=== PATIENT | female | born 1980 | race Caucasian/White ===

== ENCOUNTER 2017-11-26 00:05 | Emergency (ER) | payer SELFPAY ==
[2017-11-26] MEDS: Ketorolac 60 MG/2 ML SDV IM ONE (00:55)
[2017-11-26] MEDS: Amoxicillin/Clavulanate K 875-125 MG Tab ONE (00:57)
[2017-11-26] MEDS: traMADol 50 MG Tab PO ONE (00:57)
--- NOTE | 2017-11-26 00:58 | EDM.PDOC ---
ED HPI GENERAL MEDICAL PROBLEM - General Chief Complaint: General Stated Complaint: tooth pain Time Seen by Provider: 11/26/17 00:35 Source of Information: Reports: Patient History Limitations: Reports: No Limitations - History of Present Illness INITIAL COMMENTS - FREE TEXT/NARRATIVE: Patient presents with tooth pain that started yesterday. Today it hurt worse all day. She moved here from [place] two weeks ago and has not seen any medical or dental providers here. She has had occasional tooth aches and infections in the past but most recently a year ago. She says she has never had swelling of the cheek this bad before. At home she has been taking Ibuprofen 400 mg every 8 hours alternating with Tylenol 650 mg. When she has had tooth infections treated in the past they used amoxicillin and [place] but she says she gets really sick from [place] and doesn't want that. Right Upper Oral/Mouth Pain Score (Numeric/FACES): 9 - Related Data Allergies Allergy/AdvReac Type Severity Reaction Status Date / Time No Known Drug Allergies Allergy Other Verified 11/26/17 00:19 Home Meds: Home Meds . [No Known Home Meds] 11/26/17 [History] ED ROS GENERAL - Review of Systems Review Of Systems: See Below Constitutional: Reports: Chills (slight earlier today). Denies: Fever, Malaise , Weakness, Diaphoresis HEENT: Reports: Dental Pain. Denies: Ear Discharge, Throat Pain, Vision Change Respiratory: Reports: No Symptoms. Denies: Shortness of Breath, Cough Cardiovascular: Reports: No Symptoms. Denies: Chest Pain, Lightheadedness, Syncope Endocrine: Reports: No Symptoms GI/Abdominal: Reports: No Symptoms. Denies: Abdominal Pain, Vomiting : Reports: No Symptoms. Denies: Dysuria, Flank Pain Musculoskeletal: Reports: No Symptoms Skin: Denies: Cyanosis, Jaundice, Mottled, Pallor, Diaphoresis Neurological: Denies: Confusion, Dizziness, Headache, Seizure, Syncope, Difficulty Walking, Weakness Psychiatric: Reports: No Symptoms. Denies: Agitation, Anxiety, Confusion ED EXAM, GENERAL - Physical Exam Exam: See Below Exam Limited By: No Limitations General Appearance: Alert, WD/WN, No Apparent Distress Eye Exam: Bilateral Eye: EOMI, Normal Inspection, PERRL Ears: Normal External Exam, Hearing Grossly Normal Nose: Normal Inspection, No Blood Throat/Mouth: Normal Lips, Normal Oropharynx, Normal Voice, No Airway Compromise , Other (The right upper molar second from rear is mostly missing. This area is tender to touch. The adjacent right cheek is significantly swollen and tender to palpation but no external erythema or appearance of overt cellulitis or abscess. ) Head: Atraumatic, Facial Swelling, Facial Tenderness. No: Sinus Tenderness Neck: Normal Inspection, Supple, Non-Tender, Full Range of Motion. No: Lymphadenopathy (L), Lymphadenopathy (R) Respiratory/Chest: No Respiratory Distress, Lungs Clear, Normal Breath Sounds, No Accessory Muscle Use Cardiovascular: Regular Rate, Rhythm, No Murmur, No Rub Back Exam: Normal Inspection, Full Range of Motion Extremities: Normal Inspection, Normal Range of Motion Neurological: Alert, Oriented, Normal Cognition, No Motor/Sensory Deficits Psychiatric: Normal Affect, Normal Mood Skin Exam: Warm, Dry, Intact, Normal Color, No Rash Course - Vital Signs Last Recorded V/S: Last Vital Signs Temp 98.0 F 11/26/17 00:10 Pulse 88 11/26/17 00:10 Resp 18 11/26/17 00:10 BP 123/61 11/26/17 00:10 Pulse Ox 98 11/26/17 00:10 - Orders/Labs/Meds Meds: Medications Discontinued Medications Generic Name Dose Route Start Last Admin Trade Name Mely PRN Reason Stop Dose Admin Amoxicillin 875 mg 11/26/17 00:47 Amoxil PO 11/26/17 00:48 ONETIME ONE Ketorolac Tromethamine 60 mg 11/26/17 00:47 Toradol IM 11/26/17 00:48 ONETIME ONE Ketorolac Tromethamine Confirm 11/26/17 00:51 Toradol Administered 11/26/17 00:52 Dose 60 mg .ROUTE .STK-MED ONE Tramadol HCl 100 mg 11/26/17 00:47 Ultram PO 11/26/17 00:48 ONETIME ONE - Re-Assessments/Exams Free Text/Narrative Re-Assessment/Exam: 11/26/17 01:06 Discussed findings and treatment plan with patient. We gave Toradol and Tramadol along with Amoxicillin in ER. Patient discharged to home in stable condition. Departure - Departure Time of Disposition: 01:03 Disposition: Home, Self-Care 01 Condition: Good Clinical Impression: Tooth pain, Dental infection - Discharge Information Instructions: Dental Abscess, [id number] Additional Instructions: 1. Drink 8 cups of water daily. 2. Take the medications as directed. 3. You can also take Ibuprofen as needed but wait for 12 hours. Tylenol you can resume as needed. 4. Try to see a dentist or medical provider in clinic [facility] next week.
[2017-11-26] MEDS ORDERED: Amoxicillin/Clavulanate K 875-125 MG Tab PO ONE (01:20)
[2017-11-26] MEDS: Amoxicillin 875 MG Tab PO ONE (02:17)
[2017-11-26] MEDS: Ketorolac 60 MG/2 ML SDV ONE (02:19)
[2017-11-26] MEDS: traMADol 50 MG Tab ONE (02:19)
== END 2017-11-26 01:15 | disposition home or self-care (01) ==
LOC: KA.ED 00:05
DX: K04.7 Periapical abscess without sinus (principal)
CPT/HCPCS: 96372; 99282; A9270-GY; J1885

== ENCOUNTER 2017-11-26 19:14 | Emergency (ER) | payer SELFPAY ==
[2017-11-26] MEDS ORDERED: Ondansetron 4 MG Tab.DIS PO ONE (19:40)
[2017-11-26] MEDS: Ondansetron 4 MG Tab.DIS ONE (19:45)
[2017-11-26 19:59] LABS: ANION GAP 15.8 mmol/L (5-15); CHLORIDE,CL 104 mmol/L (98-115); SODIUM,NA 142 mmol/L (136-145)
[2017-11-26] MEDS: cefTRIAXone 2 GM Vial IVPUSH ONE (20:15)
[2017-11-26] MEDS: traMADol 50 MG Tab PO ONE ×2 (20:40→21:30)
[2017-11-26] MEDS: Ketorolac 30 MG/ML SDV IVPUSH ONE (20:41)
--- NOTE | 2017-11-26 20:43 | EDM.PDOC ---
ED HPI GENERAL MEDICAL PROBLEM - General Stated Complaint: SWOLLEN FACE..TOOTH?? Time Seen by Provider: 11/26/17 19:16 Source of Information: Reports: Patient History Limitations: Reports: No Limitations - History of Present Illness INITIAL COMMENTS - FREE TEXT/NARRATIVE: Patient returns to ER with worsening pain and swelling of right cheek. She was here in ER about 19 hours ago with dental pain and cheek pain and swelling. We gave Tramadol and Toradol as well as Augmentin 875 in ER and discharged with Rx for outpatient antibiotics and Tramadol. 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 She says the pain was improved for a few hours after she left but is now worse than before and the swelling is getting worse too. She vomited twice this evening but otherwise denies any additional problems. Right Face Pain Score (Numeric/FACES): 10 - Related Data Allergies Allergy/AdvReac Type Severity Reaction Status Date / Time No Known Drug Allergies Allergy Other Verified 11/26/17 00:19 Home Meds: Home Meds . [No Known Home Meds] 11/26/17 [History] Past Medical History HEENT History: Reports: Other (See Below) Other HEENT History: Pt reports wisdom teeth surgically removed and has had root canal in past. 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 Denies: Sinus Problem, Throat Swelling, Vision Change Respiratory: Reports: No Symptoms. Denies: Shortness of Breath Cardiovascular: Reports: No Symptoms. Denies: Chest Pain, Lightheadedness, Syncope Endocrine: Reports: No Symptoms GI/Abdominal: Reports: Nausea, Vomiting. Denies: Abdominal Pain : Reports: No Symptoms Musculoskeletal: Reports: No Symptoms Skin: Reports: Erythema (right cheek). Denies: Cyanosis, Jaundice, Mottled, Pallor, Diaphoresis Neurological: Reports: No Symptoms. Denies: Confusion, Dizziness, Seizure, Syncope, Difficulty Walking Psychiatric: Denies: Agitation, Anxiety, Confusion ED EXAM, ENT - Physical Exam Exam: See Below Exam Limited By: No Limitations General Appearance: Alert, WD/WN, No Apparent Distress Eye Exam: Bilateral Eye: EOMI, Normal Inspection, PERRL Ears: Normal External Exam, Hearing Grossly Normal Nose: Normal Inspection, No Blood Mouth/Throat: Normal Lips, Normal Oropharynx. No: Throat Swelling, Tonsillar Swelling Head: Atraumatic, Facial Swelling (right cheek from lower eyelid to mandible), Facial Tenderness (right cheek tender to palpate and mild erythema consistent with cellulitis; not fluctuant) Neck: Normal Inspection, Supple, Non-Tender, Full Range of Motion Respiratory/Chest: No Respiratory Distress, Lungs Clear, Normal Breath Sounds, No Accessory Muscle Use Cardiovascular: Regular Rate, Rhythm, No Murmur, No Rub Extremities: Normal Inspection, Normal Range of Motion Neurological: Alert, Oriented, Normal Cognition, No Motor/Sensory Deficits Psychiatric: Normal Affect, Normal Mood Skin: Warm, Dry, Intact, No Rash Course - Orders/Labs/Meds Orders: Active Orders 24 hr Category Date Time Status Amoxicillin/Clavulanate K [Augmentin 875 MG/125 MG] Med 11/27/17 09:00 Ordered 1 tab PO [id number] Medication Orders Amoxicillin/Clavulanate Potassium (Augmentin 875 Mg/125 Mg) 1 tab PO [id number] TYLOR Stop: 11/28/17 21:01 Labs: Laboratory Tests 11/26/17 11/26/17 Range/Units 19:25 19:25 WBC 8.1 (5.0-10.0) 10^3/uL RBC 3.87 (3.80-5.50) 10^6/uL Hgb 12.4 (12.0-16.0) g/dL Hct 35.7 L (37.0-47.0) % MCV 92.3 H (82.0-92.0) fL MCH 32.2 H (27.0-31.0) pg MCHC 34.8 (32.0-36.0) g/dL RDW 12.9 (11.5-14.5) % Plt Count 183 (150-300) 10^3/uL MPV 7.4 (7.4-10.4) fL Neut % (Auto) 76.4 H (50.0-70.0) % Lymph % (Auto) 16.1 L (20.0-40.0) % Benson % (Auto) 6.5 (2.0-8.0) % Eos % (Auto) 0.3 L (1.0-3.0) % Baso % (Auto) 0.7 (0.0-1.0) % Neut # (Auto) 6.2 (2.5-7.0) 10^3/uL Lymph # (Auto) 1.3 (1.0-4.0) 10^3/uL Benson # (Auto) 0.5 (0.1-0.8) 10^3/uL Eos # (Auto) 0.0 L (0.1-0.3) 10^3/uL Baso # (Auto) 0.1 (0.0-0.1) 10^3/uL Sodium 142 (136-145) mmol/L Potassium 3.6 (3.3-5.3) mmol/L Chloride 104 (98-115) mmol/L Carbon Dioxide 25.8 (21.0-32.0) mmol/L Anion Gap 15.8 H (5-15) mmol/L BUN 14 (6-25) mg/dL Creatinine 0.67 (0.51-1.17) mg/dL Est Cr Clr Drug Dosing 121.91 mL/min Estimated GFR (MDRD) > 60 mL/min Glucose 97 mg/dL Calcium 9.0 (8.7-10.3) mg/dL Total Bilirubin 0.4 (0.2-1.0) mg/dL AST 16 (15-37) U/L ALT 27 (12-78) U/L Alkaline Phosphatase 51 (46-116) IU/L C-Reactive Protein 4.1 H (0.0-0.9) mg/dL Total Protein 7.4 (6.4-8.2) g/dL Albumin 3.95 (3.00-4.80) g/dL Meds: Medications Generic Name Dose Route Start Last Admin Trade Name Freq PRN Reason Stop Dose Admin Amoxicillin/Clavulanate Potassium 1 tab 11/27/17 09:00 Augmentin 875 Mg/125 Mg PO 11/28/17 21:01 [id number] TYLOR Discontinued Medications Generic Name Dose Route Start Last Admin Trade Name Freq PRN Reason Stop Dose Admin Ceftriaxone Sodium 2 gm 11/26/17 19:49 Rocephin IVPUSH 11/26/17 19:50 ONETIME ONE Ceftriaxone Sodium Confirm 11/26/17 19:59 Rocephin Administered 11/26/17 20:00 Dose 2 gm .ROUTE .STK-MED ONE Ketorolac Tromethamine 30 mg 11/26/17 20:36 Toradol IVPUSH 11/26/17 20:37 ONETIME ONE Ondansetron HCl Confirm 11/26/17 19:40 11/26/17 19:45 Zofran Odt Administered 11/26/17 19:41 4 mg Dose Administration 4 mg .ROUTE .STK-MED ONE Tramadol HCl 100 mg 11/26/17 20:36 Ultram PO 11/26/17 20:37 ONETIME ONE Tramadol HCl 200 mg 11/26/17 21:09 Ultram PO 11/26/17 21:10 ONETIME ONE Departure - Departure Time of Disposition: 21:15 Disposition: Home, Self-Care 01 Condition: Good Clinical Impression: Cellulitis of external cheek, right, Pain, dental - Discharge Information Referrals: PCP,Unknown [Primary Care Provider] - Additional Instructions: 1. Take the Augmentin and Tramadol as directed. 2. Follow up with a dentist or primary care provider within the next 2-3 days if possible. 3. If worsening recheck [facility] with clinic or return to ER if needed. - My Orders Last 24 Hours: My Active Orders 11/27/17 09:00 Amoxicillin/Clavulanate K [Augmentin 875 MG/125 MG] 1 tab PO [id number] - Assessment/Plan Last 24 Hours: My Active Orders 11/27/17 09:00 Amoxicillin/Clavulanate K [Augmentin 875 MG/125 MG] 1 tab PO [id number]
[2017-11-26] MEDS ORDERED: Amoxicillin/Clavulanate K 875-125 MG Tab PO ONE (21:12)
[2017-11-27] MEDS: cefTRIAXone 1 GM Vial ONE (02:35)
[2017-11-27] MEDS: Amoxicillin/Clavulanate K 875-125 MG Tab PO SCH (02:36)
== END 2017-11-26 21:30 | disposition home or self-care (01) ==
LOC: KA.ED 19:14
DX: L03.211 Cellulitis of face (principal); K08.89 Other specified disorders of teeth and supporting structures
CPT/HCPCS: 36415; 80053; 85025; 86140; 96374; 96375; 99282; A9270-GY; J0696; J1885

== ENCOUNTER 2017-12-27 20:34 | Emergency (ER) | payer SELFPAY ==
--- NOTE | 2017-12-27 21:01 | EDM.PDOC ---
ED HPI GENERAL MEDICAL PROBLEM - General Chief Complaint: Fever Stated Complaint: flu like symptoms Time Seen by Provider: 12/27/17 20:42 Source of Information: Reports: Patient History Limitations: Reports: No Limitations - History of Present Illness INITIAL COMMENTS - FREE TEXT/NARRATIVE: Patient is a 37-year-old female who presents to the emergency department with a complaint of fever, cough, and body aches. Patient states symptoms began yesterday. She had a fever of 101, and symptoms have persisted today and fever remained although she has been taking Tylenol. Patient denies chest pain, shortness of breath, nausea, vomiting, diarrhea, abdominal pain, out of country travel. Onset: Gradual Duration: Day(s):, Getting Worse Quality: Reports: Ache Severity: Mild Improves with: Reports: None Worsens with: Reports: None Associated Symptoms: Reports: Cough, Fever/Chills. Denies: cough w sputum Treatments EDI PROGRAMMER: Reports: Acetaminophen Generalized Pain Score (Numeric/FACES): 5 - Related Data Allergies Allergy/AdvReac Type Severity Reaction Status Date / Time No Known Drug Allergies Allergy Other Verified 12/27/17 20:39 Home Meds: Home Meds . [No Known Home Meds] 11/26/17 [History] Past Medical History HEENT History: Reports: Other (See Below) Other HEENT History: Pt reports wisdom teeth surgically removed and has had root canal in past. 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 Constitutional: Reports: Fever, Chills HEENT: Reports: No Symptoms Respiratory: Reports: Cough Cardiovascular: Reports: No Symptoms Endocrine: Reports: No Symptoms GI/Abdominal: Reports: No Symptoms : Reports: No Symptoms Musculoskeletal: Reports: Muscle Pain Skin: Reports: No Symptoms Neurological: Reports: No Symptoms Psychiatric: Reports: No Symptoms Hematologic/Lymphatic: Reports: No Symptoms Immunologic: Reports: No Symptoms ED EXAM, GENERAL - Physical Exam Exam: See Below Exam Limited By: No Limitations General Appearance: Alert, WD/WN, No Apparent Distress Eye Exam: Bilateral Eye: Normal Inspection Ears: Normal External Exam, Normal Canal, Normal TMs Nose: Nasal Swelling, Clear Rhinorrhea, Other (Mucosal erythema) Head: Atraumatic, Normocephalic Neck: Normal Inspection, Supple. No: Lymphadenopathy (L), Lymphadenopathy (R) Respiratory/Chest: No Respiratory Distress, Crackles Cardiovascular: Tachycardia GI/Abdominal: Normal Bowel Sounds, Soft, Non-Tender Back Exam: Normal Inspection Extremities: Normal Inspection, No Pedal Edema Neurological: Alert, Oriented, Normal Cognition Psychiatric: Normal Affect, Normal Mood Skin Exam: Warm, Dry, Intact, Normal Color, No Rash Lymphatic: No Adenopathy Course - Vital Signs Last Recorded V/S: Last Vital Signs Temp 100.1 F 12/27/17 20:42 Pulse 120 H 12/27/17 20:42 Resp 20 12/27/17 20:42 BP 136/54 L 12/27/17 20:42 Pulse Ox 96 12/27/17 20:42 - Orders/Labs/Meds Orders: Active Orders 24 hr Category Date Time Status Chest 2V [CR] Stat Exams 12/27/17 20:53 Ordered INFLUENZA A+B AG SCREEN [RM] Stat Lab 12/27/17 20:53 Ordered - Radiology Interpretation Free Text/Narrative:: Chest x-ray shows no acute cardiopulmonary process - Re-Assessments/Exams Free Text/Narrative Re-Assessment/Exam: 12/27/17 21:55 Patient afebrile, nontoxic appearing, vital signs stable. Influenza negative. Patient given 500 mg Zithromax, and 600 mg Motrin ER. Prescription for 2 more days of 500 mg Zithromax Departure - Departure Time of Disposition: 21:57 Disposition: Home, Self-Care 01 Condition: Good Clinical Impression: Bronchitis - Discharge Information Instructions: Upper Respiratory Infection, Adult, [id number], Fever, Adult, [id number] Additional Instructions: Follow-up he primary care doctor in 2-3 days. Return to the emergency department sooner if symptoms continue or worsen - My Orders Last 24 Hours: My Active Orders 12/27/17 20:53 Chest 2V [CR] Stat INFLUENZA A+B AG SCREEN [RM] Stat - Assessment/Plan Last 24 Hours: My Active Orders 12/27/17 20:53 Chest 2V [CR] Stat INFLUENZA A+B AG SCREEN [RM] Stat Assessment:: Bronchitis Plan: Follow-up with PCP
[2017-12-27] MEDS ORDERED: Azithromycin 250 MG Tab PO ONE (21:53)
[2017-12-27] MEDS ORDERED: Ibuprofen 600 MG Tab PO ONE (21:53)
== END 2017-12-27 22:00 | disposition home or self-care (01) ==
LOC: KA.ED 20:34
DX: J40 Bronchitis, not specified as acute or chronic (principal); F17.210 Nicotine dependence, cigarettes, uncomplicated
CPT/HCPCS: 71046; 87804; 99283; A9270-GY

== ENCOUNTER 2018-04-29 15:37 | Emergency (ER) | payer MEDICAID ==
[2018-04-29] MEDS ORDERED: Clindamycin HCl 150 MG Cap PO ONE ×2 (17:37→17:39)
[2018-04-29] MEDS ORDERED: cefTRIAXone 1 GM Vial IM ONE (17:37)
--- NOTE | 2018-04-29 17:46 | EDM.PDOC ---
ED HPI GENERAL MEDICAL PROBLEM - General Chief Complaint: General Stated Complaint: TOOTHACHE Time Seen by Provider: 04/29/18 17:37 Source of Information: Reports: Patient History Limitations: Reports: No Limitations - History of Present Illness INITIAL COMMENTS - FREE TEXT/NARRATIVE: Patient is a 37-year-old female who presents to the emergency department this afternoon with a complaint of dental pain. States it is a chronic condition. However, noticed that her face was swelling this morning. He came concerned, so presents emergency department. Patient said similar symptoms happen last year. She was given antibiotics and it did resolve. She has not seen a dentist nor has she had any dental procedures recently. States she can't afford it. Denies difficulty swallowing or fever. Onset: Gradual Duration: Day(s): Location: Reports: Face Quality: Reports: Ache Severity: Mild Improves with: Reports: None Worsens with: Reports: None Context: Denies: Trauma Associated Symptoms: Reports: No Other Symptoms. Denies: Cough, Fever/Chills, Nausea/Vomiting - Related Data Allergies Allergy/AdvReac Type Severity Reaction Status Date / Time No Known Drug Allergies Allergy Other Verified 04/29/18 16:37 Home Meds: Home Meds Azithromycin [Zithromax] 500 mg PO DAILY #2 tab 12/28/17 [Rx] Clindamycin HCl 300 mg PO QID #28 capsule 04/29/18 [Rx] Past Medical History HEENT History: Reports: Other (See Below) Other HEENT History: Pt reports wisdom teeth surgically removed and has had root canal in past. 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 Constitutional: Reports: No Symptoms HEENT: Reports: Other (Right-sided dental pain) Respiratory: Reports: No Symptoms Cardiovascular: Reports: No Symptoms Endocrine: Reports: No Symptoms GI/Abdominal: Reports: No Symptoms : Reports: No Symptoms Musculoskeletal: Reports: No Symptoms Skin: Reports: No Symptoms Neurological: Reports: No Symptoms Psychiatric: Reports: No Symptoms Hematologic/Lymphatic: Reports: No Symptoms Immunologic: Reports: No Symptoms ED EXAM, GENERAL - Physical Exam Exam: See Below Exam Limited By: No Limitations General Appearance: Alert, WD/WN, No Apparent Distress Ear Exam: Bilateral Ear: Auricle Normal, Canal Normal, TM normal Nose: Normal Inspection, Normal Mucosa, No Blood Throat/Mouth: Normal Oropharynx, Other (Extensive dental decay.) Head: Atraumatic, Facial Swelling (Right maxillary region), Other (. No erythema or ecchymosis noted) Neck: Normal Inspection, Supple. No: Lymphadenopathy (L), Lymphadenopathy (R) Respiratory/Chest: No Respiratory Distress, Lungs Clear, Normal Breath Sounds Cardiovascular: Regular Rate, Rhythm, No Murmur GI/Abdominal: Normal Bowel Sounds, Soft, Non-Tender Neurological: Alert, Oriented, Normal Cognition Psychiatric: Normal Affect, Normal Mood Skin Exam: Warm, Dry, Intact, Normal Color, No Rash Lymphatic: No Adenopathy Course - Vital Signs Last Recorded V/S: Last Vital Signs Temp 98.8 F 04/29/18 16:57 Pulse 91 04/29/18 16:57 Resp 18 04/29/18 16:57 BP 102/48 L 04/29/18 16:57 Pulse Ox 96 04/29/18 16:57 - Orders/Labs/Meds Meds: Medications Discontinued Medications Generic Name Dose Route Start Last Admin Trade Name Sarkisq PRN Reason Stop Dose Admin Ceftriaxone Sodium 1 gm 04/29/18 17:37 Rocephin IM 04/29/18 17:38 ONETIME ONE Clindamycin HCl 300 mg 04/29/18 17:37 Cleocin PO 04/29/18 17:38 ONETIME ONE Clindamycin HCl 1,200 mg 04/29/18 17:39 Cleocin PO 04/29/18 17:40 ONETIME ONE - Re-Assessments/Exams Free Text/Narrative Re-Assessment/Exam: 04/29/18 17:46 Patient afebrile, vital signs stable. Patient given 1 g IM Rocephin, and 300 mg of clindamycin in the ER. Patient given prescription for clindamycin. Patient will return to the ER in 24-48 hours for recheck. Departure - Departure Time of Disposition: 17:48 Disposition: Home, Self-Care 01 Condition: Good Clinical Impression: Toothache, Infected dental caries - Discharge Information Prescriptions: Clindamycin HCl 300 mg PO QID #28 capsule Instructions: Preventive Dental Care, Adult, Cellulitis, Adult, [id number] Referrals: PCP,None [Primary Care Provider] - Additional Instructions: Return to the ER in 24-48 hours for recheck. Take medication as prescribed. - Assessment/Plan Assessment:: Toothache, facial cellulitis Plan: Recheck in 24-48 hours
== END 2018-04-29 18:30 | disposition home or self-care (01) ==
LOC: KA.ED 15:37
DX: K04.7 Periapical abscess without sinus (principal); F17.210 Nicotine dependence, cigarettes, uncomplicated; Z79.2 Long term (current) use of antibiotics; Z90.710 Acquired absence of both cervix and uterus
CPT/HCPCS: 96372; 99283; A9270-GY; J0696

== ENCOUNTER 2018-10-04 21:21 | Emergency (ER) | payer MEDICAID ==
[2018-10-04 21:34] VITALS: BP 131/62
[2018-10-04] MEDS: Lidocaine 1% 20 ML MDV ONE ×2 (21:53→21:56)
--- NOTE | 2018-10-04 21:53 | EDM.PDOC ---
ED HPI GENERAL MEDICAL PROBLEM - General Chief Complaint: Lower Extremity Injury/Pain Stated Complaint: RIGHT LEG CELLULITIS Time Seen by Provider: 10/04/18 21:48 Source of Information: Reports: Patient History Limitations: Reports: No Limitations - History of Present Illness INITIAL COMMENTS - FREE TEXT/NARRATIVE: Patient is a 38-year-old female who presents to the emergency department this evening with a complaint of right lower extremity redness. Redness began yesterday and worsened today. Patient states that she's had cellulitis in this area of lower extremity 4 times previously. Resolved with antibiotics. Unsure of insult, has not shaved legs for one week. Denies calf swelling, tenderness, pedal edema, shortness of breath, or chest pain. Onset: Gradual Onset Date: 10/03/18 Duration: Day(s): Location: Reports: Lower Extremity, Right Quality: Reports: Burning Severity: Mild Improves with: Reports: None Worsens with: Reports: None Associated Symptoms: Reports: Fever/Chills. Denies: Chest Pain, Diaphoresis, Nausea/Vomiting, Shortness of Breath Treatments ANIMAL CARE ATTENDANT: Reports: Other Medication(s) Other Treatments ANIMAL CARE ATTENDANT: ibuprofen Right Lower Leg Pain Score (Numeric/FACES): 3 - Related Data Allergies Allergy/AdvReac Type Severity Reaction Status Date / Time No Known Drug Allergies Allergy Other Verified 04/29/18 16:37 Home Meds: Home Meds Cephalexin [Keflex] 500 mg PO TID #30 capsule 10/04/18 [Rx] Past Medical History HEENT History: Reports: Other (See Below) Other HEENT History: Pt reports wisdom teeth surgically removed and has had root canal in past. 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 Constitutional: Reports: Fever Eyes: Reports: No Symptoms Ears: Reports: No Symptoms Nose: Reports: No Symptoms Mouth/Throat: Reports: No Symptoms Respiratory: Reports: No Symptoms Cardiovascular: Reports: No Symptoms GI/Abdominal: Reports: No Symptoms Genitourinary: Reports: No Symptoms Musculoskeletal: Reports: No Symptoms Skin: Reports: Erythema (Right tib-fib) Neurological: Reports: No Symptoms Psychiatric: Reports: No Symptoms ED EXAM, GENERAL - Physical Exam Exam: See Below Exam Limited By: No Limitations General Appearance: Alert, WD/WN, No Apparent Distress Throat/Mouth: Normal Inspection, Normal Oropharynx, No Airway Compromise Respiratory/Chest: No Respiratory Distress, Lungs Clear Extremities: Normal Inspection Neurological: Alert, Oriented, Normal Cognition Psychiatric: Normal Affect, Normal Mood Skin Exam: Warm, Dry, Intact, No Rash, Erythema (Right lower extremity anterior tib-fib with some extension into mid and lateral aspect. Not circumferential. No palpable cord, calf tenderness or firmness, or pedal edema noted.) Lymphatic: No Adenopathy Course - Vital Signs Last Recorded V/S: Last Vital Signs Temp 100.2 F 10/04/18 21:28 Pulse 105 H 10/04/18 21:28 Resp 16 10/04/18 21:28 BP 131/62 10/04/18 21:28 Pulse Ox 93 L 10/04/18 21:28 - Orders/Labs/Meds Orders: Active Orders 24 hr Category Date Time Status cefTRIAXone [Rocephin] Med 10/04/18 21:48 Once 1 gm IM ONETIME ONE - Re-Assessments/Exams Free Text/Narrative Re-Assessment/Exam: 10/04/18 21:53 Patient afebrile, vital signs stable, given 1 g IM Rocephin. Patient given prescription for Keflex and a 24-hour follow-up recheck. Departure - Departure Time of Disposition: 21:55 Disposition: Home, Self-Care 01 Condition: Good Clinical Impression: Cellulitis of lower extremity Qualifiers: Laterality: right Qualified Code(s): L03.115 - Cellulitis of right lower limb - Discharge Information Instructions: Cellulitis, Adult, [id number] Additional Instructions: Return to emergency department in 24 hours for recheck. Take medication as directed. - My Orders Last 24 Hours: My Active Orders 10/04/18 21:48 cefTRIAXone [Rocephin] 1 gm IM ONETIME ONE - Assessment/Plan Last 24 Hours: My Active Orders 10/04/18 21:48 cefTRIAXone [Rocephin] 1 gm IM ONETIME ONE Assessment:: Right lower extremity cellulitis Plan: Recheck in 24 hours
[2018-10-04] MEDS: Lidocaine 1% 20 ML MDV INJECT ONE (21:58)
[2018-10-04] MEDS: cefTRIAXone 1 GM Vial IM ONE (21:58)
[2018-10-05] MEDS ORDERED: cefTRIAXone 1 GM Vial IM ONE (16:11)
== END 2018-10-04 22:00 | disposition home or self-care (01) ==
LOC: KA.ED 21:21
DX: L03.115 Cellulitis of right lower limb (principal)
CPT/HCPCS: 96372; 99283; J0696; J2001

== ENCOUNTER 2020-07-19 22:47 | Emergency (ER) | payer BC, OTHER ==
--- NOTE | 2020-07-19 23:14 | EDM.PDOC ---
ED HPI GENERAL MEDICAL PROBLEM - General Chief Complaint: Chest Pain Stated Complaint: Chest pain vs. anxiety Time Seen by Provider: 07/19/20 22:50 Source of Information: Reports: Patient History Limitations: Reports: No Limitations - History of Present Illness INITIAL COMMENTS - FREE TEXT/NARRATIVE: 40-year-old female presents emergency room with complaints of chest pressure th at radiates to her left neck and chin and left shoulder. She reports that symptoms started when she was picking her son up this evening. They last about 10 to 15 seconds. They reoccur every 15 to 20 minutes. She denies any shortness of breath. She denies any palpations. She denies any diaphoresis. No nausea or vomiting no abdominal complaints. She denies any significant past medical medical history consistent with hypertension, diabetes, heart disease, cholesterol. She does have positive history of anxiety and mild depression. This has been well controlled with Lexapro and Xanax as needed for panic attacks. Patient feels the symptoms were different than previous episodes and therefore became concerned and presents to the emergency room for further work- up and evaluation. Onset: Today Onset Date: 07/19/20 Onset Time: 22:00 Duration: Recurring Location: Reports: Neck, Chest, Upper Extremity, Left (shoulder) Quality: Reports: Pressure Severity: Mild Improves with: Reports: None Worsens with: Reports: None Associated Symptoms: Reports: Chest Pain (pressure). Denies: Diaphoresis, Fever/Chills, Headaches, Nausea/Vomiting, Shortness of Breath, Weakness chest Pain Score (Numeric/FACES): 3 - Related Data Allergies Allergy/AdvReac Type Severity Reaction Status Date / Time No Known Drug Allergies Allergy Unknown Other Verified 07/19/20 23:13 Home Meds: Home Meds ALPRAZolam [Xanax] 0.25 mg PO Q6H PRN 07/19/20 [History] Cyclobenzaprine [Flexeril] 10 mg PO TID PRN 07/19/20 [History] Escitalopram [Lexapro] 10 mg PO DAILY 07/19/20 [History] Past Medical History HEENT History: Reports: Other (See Below) Other HEENT History: Pt reports wisdom teeth surgically removed and has had root canal in past. 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: Dermatologic History: Reports: Cellulitis - Infectious Disease History Infectious Disease History: Reports: Chicken Pox, Influenza - Past Surgical History Female Surgical History: Reports: Hysterectomy Social & Family History - Family History Family Medical History: No Pertinent Family History - Caffeine Use Caffeine Use: Reports: Coffee ED ROS GENERAL - Review of Systems Review Of Systems: See Below Constitutional: Reports: No Symptoms HEENT: Reports: No Symptoms Respiratory: Reports: No Symptoms Cardiovascular: Reports: Chest Pain (Pressure) Endocrine: Reports: No Symptoms GI/Abdominal: Reports: No Symptoms : Reports: No Symptoms Musculoskeletal: Reports: Neck Pain (Left side), Shoulder Pain (Left shoulder) Skin: Reports: No Symptoms Neurological: Reports: No Symptoms Psychiatric: Reports: Anxiety, Depression Hematologic/Lymphatic: Reports: No Symptoms Immunologic: Reports: No Symptoms ED EXAM, GENERAL - Physical Exam Exam: See Below General Appearance: Alert, WD/WN, No Apparent Distress Eye Exam: Bilateral Eye: EOMI Ears: Hearing Grossly Normal Nose: Normal Inspection Throat/Mouth: Normal Inspection, Normal Oropharynx, Normal Voice, No Airway Compromise Head: Atraumatic, Normocephalic Neck: Normal Inspection, Supple, Non-Tender, Full Range of Motion. No: Carotid Bruit, Lymphadenopathy (L), Lymphadenopathy (R) Respiratory/Chest: No Respiratory Distress, Lungs Clear, Normal Breath Sounds, No Accessory Muscle Use, Chest Non-Tender Cardiovascular: Normal Peripheral Pulses, Regular Rate, Rhythm, No Murmur Peripheral Pulses: 1+: Dorsalis Pedis (L), Dorsalis Pedis (R), 2+: Carotid (L), Carotid (R) GI/Abdominal: Soft, Non-Tender Back Exam: Normal Inspection, Full Range of Motion Extremities: Normal Inspection, Normal Range of Motion, No Pedal Edema Neurological: Alert, Oriented, No Motor/Sensory Deficits Psychiatric: Normal Affect, Normal Mood Skin Exam: Warm, Dry, Intact, Normal Color, No Rash Lymphatic: No Adenopathy #1 Interpretation EKG Date: 07/19/20 Time: 23:04 Rhythm: NSR Rate (Beats/Min): 77 [place]: Normal P-Wave: Enlarged QRS: Normal ST-T: Normal QT: Normal Comparison: NA - No Prior EKG EKG Interpretation Comments: Normal sinus rhythm Possible left atrial enlargement Borderline ECG Course - Vital Signs Last Recorded V/S: Last Vital Signs Temp 96.6 F L 07/19/20 22:47 Pulse 83 07/20/20 00:02 Resp 15 07/20/20 00:02 BP 122/72 07/20/20 00:02 Pulse Ox 98 07/20/20 00:02 - Orders/Labs/Meds Orders: Active Orders 24 hr Category Date Time Status EKG Documentation Completion [RC] ASDIRECTED Care 07/19/20 22:56 Active EKG 12 Lead [EK] Stat Ther 07/19/20 22:55 Ordered Labs: Laboratory Tests 07/19/20 07/19/20 07/20/20 Range/Units 23:00 23:00 00:58 WBC 6.37 (5.00-10.00) 10^3/uL RBC 4.08 (3.80-5.50) 10^6/uL Hgb 12.1 (12.0-16.0) g/dL Hct 35.9 L (37.0-47.0) % MCV 88.0 D (82.0-92.0) fL MCH 29.7 (27.0-31.0) pg MCHC 33.7 (32.0-36.0) g/dL RDW 13.1 (11.5-14.5) % Plt Count 196 (150-400) 10^3/uL MPV 9.2 (7.4-10.4) fL Immature Gran % (Auto) 0.0 (0.0-5.0) % Neut % (Auto) 49.0 L (50.0-70.0) % Lymph % (Auto) 40.7 H (20.0-40.0) % [place] % (Auto) 7.8 (2.0-8.0) % Eos % (Auto) 2.2 (1.0-3.0) % Baso % (Auto) 0.3 (0.0-1.0) % Neut # (Auto) 3.12 (2.50-7.00) 10^3/uL Lymph # (Auto) 2.59 (1.00-4.00) 10^3/uL [place] # (Auto) 0.50 (0.10-0.80) 10^3/uL Eos # (Auto) 0.14 (0.10-0.30) 10^3/uL Baso # (Auto) 0.02 (0.00-0.10) 10^3/uL Immature Gran # (Auto) 0.00 (0.00-0.50) 10^3/uL Sodium 145 (136-145) mmol/L Potassium 3.2 L (3.5-5.1) mmol/L Chloride 106 (98-107) mmol/L Carbon Dioxide 26.5 (21.0-32.0) mmol/L Anion Gap 15.7 H (5-15) mmol/L BUN 16 (7-18) mg/dL Creatinine 0.77 (0.51-1.17) mg/dL Est Cr Clr Drug Dosing 102.92 mL/min Estimated GFR (MDRD) > 60 mL/min Glucose 126 (70-140) mg/dL Calcium 8.5 L (8.7-10.3) mg/dL Total Bilirubin 0.1 L (0.2-1.0) mg/dL AST 15 (15-37) U/L ALT 22 (14-63) U/L Alkaline Phosphatase 75 (46-116) U/L Troponin I < 0.017 < 0.017 (0.000-0.056) ng/mL Total Protein 6.5 (6.4-8.2) g/dL Albumin 3.39 L (3.40-5.00) g/dL Meds: Medications Discontinued Medications Generic Name Dose Route Start Last Admin Trade Name Freq PRN Reason Stop Dose Admin Alprazolam 0.5 mg 07/19/20 23:22 07/19/20 23:26 Alprazolam 0.25 Mg Tab PO 07/19/20 23:23 0.5 mg ONETIME ONE Administration Aspirin 324 mg 07/19/20 23:17 07/19/20 23:25 Aspirin 81 Mg Tab.Chew PO 07/19/20 23:18 324 mg ONETIME ONE Administration - Re-Assessments/Exams Free Text/Narrative Re-Assessment/Exam: 07/20/20 00:49 Was given 4 chewable aspirin upon arrival Patient was given 0.5 mg of Xanax. Patient reports approximately 45 minutes after receiving the Xanax as she feels better. She has had 1 episode where she felt she had chest pressure with radiation to her neck. We plan on repeating her troponin in 2 hours from the initial lab 07/20/20 01:30 Second troponin test was normal range. Departure - Departure Time of Disposition: 01:45 Disposition: Home, Self-Care 01 Condition: Good Clinical Impression: Atypical chest pain, Panic attack - Discharge Information Forms: ED Department Discharge Sepsis Event Note (ED) - Focused Exam Vital Signs: Vital Signs Temp Pulse Resp BP Pulse Ox 07/20/20 00:02 83 15 122/72 98 07/19/20 23:15 90 15 125/76 98 07/19/20 22:47 96.6 F L 101 H 14 138/82 98 - My Orders Last 24 Hours: My Active Orders 07/19/20 22:55 EKG 12 Lead [EK] Stat 07/19/20 22:56 EKG Documentation Completion [RC] ASDIRECTED - Assessment/Plan Last 24 Hours: My Active Orders 07/19/20 22:55 EKG 12 Lead [EK] Stat 07/19/20 22:56 EKG Documentation Completion [RC] ASDIRECTED Assessment:: 1. Atypical chest pain, negative serial troponin 2. Panic attack Plan: 1. Patient is discharged home. 2. Recommend follow-up with primary care for further work-up. Troponin level and repeat troponin level were normal. 3. If you have recurrence of chest pain lasting more than 2 minutes you should to return back to the emergency room, or if you experience diaphoresis, nausea vomiting, jaw pain, shoulder pain, lower back pain associated with chest pain.
[2020-07-19] MEDS ORDERED: Aspirin 81 MG Tab.Chew PO ONE (23:17)
[2020-07-19] MEDS ORDERED: ALPRAZolam 0.25 MG Tab PO ONE (23:22)
[2020-07-19 23:36] LABS: ANION GAP 15.7 mmol/L (5-15); CHLORIDE,CL 106 mmol/L (98-107); SODIUM,NA 145 mmol/L (136-145)
== END 2020-07-20 02:00 | disposition home or self-care (01) ==
LOC: KA.ED 22:47
DX: F41.0 Panic disorder [episodic paroxysmal anxiety] (principal); M54.2 Cervicalgia; M25.512 Pain in left shoulder
CPT/HCPCS: 36415; 80053; 84484; 85025; 93005; 99284; 99285-25; A9270-GY

== ENCOUNTER 2022-09-04 02:10 | Emergency (ER) | payer BC ==
[2022-09-04] MEDS ORDERED: Aspirin 81 MG Tab.Chew PO ONE (02:45)
[2022-09-04] MEDS ORDERED: Sodium Chloride 0.9% 1,000 ML IV ONE (03:02)
[2022-09-04 03:05] LABS: BASOPHILS ABSOLUTE AUTO 0.02 10^3/uL (0.00-0.10); BASOPHILS PERCENT AUTO 0.4 % (0.0-1.0); EOSINOPHILS ABSOLUTE AUTO 0.18 10^3/uL (0.10-0.30); EOSINOPHILS PERCENT AUTO 3.8 % (1.0-3.0); HEMATOCRIT 33.3 % (37.0-47.0); HEMOGLOBIN 11.3 g/dL (12.0-16.0); IMMATURE GRAN ABSOLUTE AUTO 0.01 10^3/uL (0.00-0.50); IMMATURE GRAN PERCENT AUTO 0.2 % (0.0-5.0); LYMPHOCYTES ABSOLUTE AUTO 1.47 10^3/uL (1.00-4.00); LYMPHOCYTES PERCENT AUTO 31.3 % (20.0-40.0); MEAN CORPUSCULAR HEMOGLOBIN 29.4 pg (27.0-31.0); MEAN CORPUSCULAR HGB CONC 33.9 g/dL (32.0-36.0); MEAN CORPUSCULAR VOLUME 86.5 fL (82.0-92.0); MEAN PLATELET VOLUME 9.2 fL (7.4-10.4); MONOCYTES ABSOLUTE AUTO 0.46 10^3/uL (0.10-0.80); MONOCYTES PERCENT AUTO 9.8 % (2.0-8.0); NEUTROPHILS ABSOLUTE AUTO 2.55 10^3/uL (2.50-7.00); NEUTROPHILS PERCENT AUTO 54.5 % (50.0-70.0); PLATELET COUNT,PLT 190 10^3/uL (150-400); RED BLOOD CELL COUNT 3.85 10^6/uL (3.80-5.50); RED CELL DISTRIBUTION WIDTH 12.6 % (11.5-14.5); WHITE BLOOD CELL COUNT,WBC 4.69 10^3/uL (5.00-10.00)
[2022-09-04] MEDS: Nitroglycerin 0.4 MG Tab.SL SL PRN ×2 (03:07→03:19)
[2022-09-04 03:22] LABS: ANION GAP 9.7 mmol/L (5-15); CALCIUM 8.1 mg/dL (8.7-10.3); CREATININE 0.85 mg/dL (0.51-1.17); EST CRCL DRUG DOSING (CG) 91.33 mL/min; POTASSIUM,K 3.7 mmol/L (3.5-5.1)
[2022-09-04] MEDS ORDERED: Alum Hydrox/Mag Hydrox/Simeth 30 ML, Lidocaine 2% 15 ML PO ONE ×2 (03:36)
[2022-09-04] MEDS ORDERED: Lidocaine 2% 5 ML SDV INJECT ONE (03:57)
[2022-09-04] MEDS ORDERED: Aluminum Hydroxide/Magnesium Hydroxide/Simethicone Susp 30 ML Cup PO ONE (03:57)
[2022-09-04] MEDS ORDERED: Lidocaine 2% 100 MG/5 ML Syringe IVPUSH ONE (04:14)
[2022-09-04] MEDS ORDERED: Lidocaine 2% 100 MG/5 ML Syringe ONE (04:17)
[2022-09-04] MEDS ORDERED: Lidocaine 2% 20 ML MDV ONE (04:19)
== END 2022-09-04 06:50 | disposition home or self-care (01) ==
LOC: KA.ED 02:10
DX: R07.9 Chest pain, unspecified (principal); F17.210 Nicotine dependence, cigarettes, uncomplicated
CPT/HCPCS: 36415; 80048; 84484; 85025; 93005; 93010; 99284; 99285; A9270-GY; J3490; J7030

== ENCOUNTER 2022-12-06 11:00 | Inpatient (IN) | payer BC ==
[2022-12-06] MEDS ORDERED: Ketorolac 30 MG/ML SDV IVPUSH ONE (12:22)
[2022-12-06] MEDS ORDERED: cefTRIAXone 2 GM Vial IVPUSH SCH (12:30)
[2022-12-06] MEDS ORDERED: VANCOmycin 1.5 GM/300 ML 1.5 GM in Premix Bag 1 BAG IV ONE (13:45)
[2022-12-06] MEDS ORDERED: VANCOmycin 1.5 GM/300 ML 300 ML ONE (13:45)
[2022-12-06] MEDS: Sodium Chloride 0.9% 50 ML IV SCH (13:53)
[2022-12-06] MEDS: Enoxaparin 40 MG/0.4 ML Syringe SUBCUT SCH (13:57)
[2022-12-06 14:12] LABS: BASOPHILS ABSOLUTE AUTO 0.01 10^3/uL (0.00-0.10); BASOPHILS PERCENT AUTO 0.1 % (0.0-1.0); EOSINOPHILS ABSOLUTE AUTO 0.01 10^3/uL (0.10-0.30); EOSINOPHILS PERCENT AUTO 0.1 % (1.0-3.0); HEMATOCRIT 36.5 % (37.0-47.0); HEMOGLOBIN 12.2 g/dL (12.0-16.0); IMMATURE GRAN ABSOLUTE AUTO 0.02 10^3/uL (0.00-0.50); IMMATURE GRAN PERCENT AUTO 0.2 % (0.0-5.0); LYMPHOCYTES ABSOLUTE AUTO 1.02 10^3/uL (1.00-4.00); LYMPHOCYTES PERCENT AUTO 9.8 % (20.0-40.0); MEAN CORPUSCULAR HEMOGLOBIN 28.5 pg (27.0-31.0); MEAN CORPUSCULAR HGB CONC 33.4 g/dL (32.0-36.0); MEAN CORPUSCULAR VOLUME 85.3 fL (82.0-92.0); MEAN PLATELET VOLUME 9.6 fL (7.4-10.4); MONOCYTES ABSOLUTE AUTO 0.47 10^3/uL (0.10-0.80); MONOCYTES PERCENT AUTO 4.5 % (2.0-8.0); NEUTROPHILS ABSOLUTE AUTO 8.87 10^3/uL (2.50-7.00); NEUTROPHILS PERCENT AUTO 85.3 % (50.0-70.0); PLATELET COUNT,PLT 164 10^3/uL (150-400); RED BLOOD CELL COUNT 4.28 10^6/uL (3.80-5.50); RED CELL DISTRIBUTION WIDTH 13.5 % (11.5-14.5)
[2022-12-06 14:21] LABS: ALBUMIN 3.15 g/dL (3.40-5.00); ANION GAP 13.3 mmol/L (5-15); BILIRUBIN TOTAL 0.4 mg/dL (0.2-1.0); CALCIUM 8.8 mg/dL (8.7-10.3); CARBON DIOXIDE,CO2 26.6 mmol/L (21.0-32.0); CREATININE 0.87 mg/dL (0.51-1.17); EST CRCL DRUG DOSING (CG) 89.23 mL/min; POTASSIUM,K 3.9 mmol/L (3.5-5.1); PROTEIN TOTAL,TP 7.4 g/dL (6.4-8.2)
[2022-12-06] MEDS: Acetaminophen 325 MG Tab PO PRN ×2 (15:45→20:52)
[2022-12-06 15:55] LABS: APPEARANCE,URINE SLIGHTLY CLOUDY (CLEAR); BILIRUBIN,URINE NEGATIVE (NEGATIVE); COLOR,URINE YELLOW (YELLOW); GLUCOSE,URINE NEGATIVE (NEGATIVE); KETONES,URINE NEGATIVE (NEGATIVE); LEUKOCYTE ESTERASE,URINE NEGATIVE (NEGATIVE); NITRITE,URINE NEGATIVE (NEGATIVE); OCCULT BLOOD,URINE TRACE-LYSED (NEGATIVE); PH,URINE 5.5 (5.0-9.0); PROTEIN,URINE 30 mg/dL (NEGATIVE); UROBILINOGEN,URINE 0.2 E.U./dL (0.2-1.0)
[2022-12-06 16:01] LABS: BACTERIA,URINE RARE /HPF (NONE TO FEW); EPITHELIAL CELLS,URINE FEW /LPF; WBC,URINE 0-5 /HPF (0-5)
[2022-12-06] MEDS: Sodium Chloride 0.9% 1,000 ML IV SCH (17:07)
[2022-12-06] MEDS: Morphine 2 MG/ML SYRINGE IVPUSH PRN (18:35)
[2022-12-06] MEDS: Ondansetron 4 MG/2 ML SDV IV PRN (18:45)
[2022-12-07] MEDS: Morphine 2 MG/ML SYRINGE IVPUSH PRN ×2 (01:13→05:27)
[2022-12-07] MEDS: Ondansetron 4 MG/2 ML SDV IV PRN ×2 (01:24→05:27)
[2022-12-07] MEDS ORDERED: VANCOmycin 1.25 GM/250 ML 1.25 GM in Premix Bag 1 BAG IV SCH (02:00)
[2022-12-07 07:09] LABS: BASOPHILS ABSOLUTE AUTO 0.03 10^3/uL (0.00-0.10); BASOPHILS PERCENT AUTO 0.4 % (0.0-1.0); EOSINOPHILS ABSOLUTE AUTO 0.04 10^3/uL (0.10-0.30); EOSINOPHILS PERCENT AUTO 0.5 % (1.0-3.0); HEMATOCRIT 32.7 % (37.0-47.0); HEMOGLOBIN 10.8 g/dL (12.0-16.0); IMMATURE GRAN ABSOLUTE AUTO 0.02 10^3/uL (0.00-0.50); IMMATURE GRAN PERCENT AUTO 0.3 % (0.0-5.0); LYMPHOCYTES ABSOLUTE AUTO 1.09 10^3/uL (1.00-4.00); LYMPHOCYTES PERCENT AUTO 13.7 % (20.0-40.0); MEAN CORPUSCULAR HEMOGLOBIN 28.3 pg (27.0-31.0); MEAN CORPUSCULAR VOLUME 85.6 fL (82.0-92.0); MEAN PLATELET VOLUME 9.1 fL (7.4-10.4); MONOCYTES ABSOLUTE AUTO 0.48 10^3/uL (0.10-0.80); NEUTROPHILS ABSOLUTE AUTO 6.29 10^3/uL (2.50-7.00); NEUTROPHILS PERCENT AUTO 79.1 % (50.0-70.0); PLATELET COUNT,PLT 141 10^3/uL (150-400); RED BLOOD CELL COUNT 3.82 10^6/uL (3.80-5.50); RED CELL DISTRIBUTION WIDTH 13.6 % (11.5-14.5); WHITE BLOOD CELL COUNT,WBC 7.95 10^3/uL (5.00-10.00)
[2022-12-07 07:26] LABS: ANION GAP 12.8 mmol/L (5-15); CALCIUM 7.9 mg/dL (8.7-10.3); CARBON DIOXIDE,CO2 24.7 mmol/L (21.0-32.0); CREATININE 0.7 mg/dL (0.51-1.17); EST CRCL DRUG DOSING (CG) 110.9 mL/min; POTASSIUM,K 3.5 mmol/L (3.5-5.1); VANCOMYCIN RANDOM 14.6 ug/mL
[2022-12-07] MEDS: Sodium Chloride 0.9% 1,000 ML IV SCH (08:08)
[2022-12-07] MEDS: Enoxaparin 40 MG/0.4 ML Syringe SUBCUT SCH (08:09)
[2022-12-07] MEDS: Ibuprofen 400 MG Tab PO PRN (08:11)
[2022-12-07] MEDS ORDERED: Metoclopramide 10 MG/2 ML SDV IVPUSH ONE (09:19)
[2022-12-07] MEDS ORDERED: Melatonin 3 MG Tab PO PRN (09:19)
[2022-12-07] MEDS ORDERED: Ketorolac 30 MG/ML SDV IVPUSH ONE (09:19)
[2022-12-07] MEDS ORDERED: DEXAMETHASONE IV SCH (09:30)
[2022-12-07] MEDS ORDERED: SODIUM CHLORIDE 0.9% IV SCH (09:30)
[2022-12-07] MEDS ORDERED: SODIUM CHLORIDE 0.9% IV ONE (09:43)
[2022-12-07] MEDS ORDERED: DEXAMETHASONE IV ONE (09:43)
[2022-12-07] MEDS: Ampicillin/Sulbactam Na 3 GM in Sodium Chloride 0.9% 100 ML IV SCH ×3 (11:11→22:10)
[2022-12-07] MEDS: ALPRAZolam 0.25 MG Tab PO PRN (22:09)
[2022-12-07] MEDS: Cyclobenzaprine 10 MG Tab PO PRN (22:09)
[2022-12-07] MEDS: Sodium Chloride 0.9% 50 ML IV SCH (22:10)
[2022-12-08] MEDS: Ampicillin/Sulbactam Na 3 GM in Sodium Chloride 0.9% 100 ML IV SCH (05:27)
[2022-12-08 07:01] LABS: BASOPHILS ABSOLUTE AUTO 0.01 10^3/uL (0.00-0.10); BASOPHILS PERCENT AUTO 0.1 % (0.0-1.0); HEMATOCRIT 32.3 % (37.0-47.0); HEMOGLOBIN 10.8 g/dL (12.0-16.0); IMMATURE GRAN ABSOLUTE AUTO 0.11 10^3/uL (0.00-0.50); IMMATURE GRAN PERCENT AUTO 1.1 % (0.0-5.0); LYMPHOCYTES ABSOLUTE AUTO 0.99 10^3/uL (1.00-4.00); LYMPHOCYTES PERCENT AUTO 9.5 % (20.0-40.0); MEAN CORPUSCULAR HEMOGLOBIN 28.3 pg (27.0-31.0); MEAN CORPUSCULAR HGB CONC 33.4 g/dL (32.0-36.0); MEAN CORPUSCULAR VOLUME 84.6 fL (82.0-92.0); MEAN PLATELET VOLUME 9.2 fL (7.4-10.4); MONOCYTES ABSOLUTE AUTO 0.58 10^3/uL (0.10-0.80); MONOCYTES PERCENT AUTO 5.5 % (2.0-8.0); NEUTROPHILS ABSOLUTE AUTO 8.78 10^3/uL (2.50-7.00); NEUTROPHILS PERCENT AUTO 83.8 % (50.0-70.0); PLATELET COUNT,PLT 198 10^3/uL (150-400); RED BLOOD CELL COUNT 3.82 10^6/uL (3.80-5.50); RED CELL DISTRIBUTION WIDTH 13.4 % (11.5-14.5); WHITE BLOOD CELL COUNT,WBC 10.47 10^3/uL (5.00-10.00)
[2022-12-08] MEDS: Ibuprofen 400 MG Tab PO PRN (07:04)
[2022-12-08 07:15] LABS: ANION GAP 9.4 mmol/L (5-15); CALCIUM 8.4 mg/dL (8.7-10.3); CARBON DIOXIDE,CO2 28.1 mmol/L (21.0-32.0); CREATININE 0.56 mg/dL (0.51-1.17); EST CRCL DRUG DOSING (CG) 138.63 mL/min; POTASSIUM,K 3.5 mmol/L (3.5-5.1)
[2022-12-08] MEDS: Enoxaparin 40 MG/0.4 ML Syringe SUBCUT SCH (08:33)
[2022-12-08] MEDS: Clindamycin HCl 150 MG Cap PO SCH ×3 (08:33→23:26)
[2022-12-08] MEDS: Amoxicillin/Clavulanate K 875-125 MG Tab PO SCH ×2 (08:33→20:54)
[2022-12-08] MEDS: Ondansetron 4 MG/2 ML SDV IV PRN (09:49)
[2022-12-08] MEDS: Acetaminophen 325 MG Tab PO PRN (10:52)
[2022-12-08] MEDS: ALPRAZolam 0.25 MG Tab PO PRN (23:26)
[2022-12-08] MEDS: Cyclobenzaprine 10 MG Tab PO PRN (23:27)
[2022-12-09 07:16] LABS: EOSINOPHILS ABSOLUTE AUTO 0.06 10^3/uL (0.10-0.30); EOSINOPHILS PERCENT AUTO 0.7 % (1.0-3.0); HEMATOCRIT 31.1 % (37.0-47.0); HEMOGLOBIN 10.4 g/dL (12.0-16.0); IMMATURE GRAN ABSOLUTE AUTO 0.31 10^3/uL (0.00-0.50); IMMATURE GRAN PERCENT AUTO 3.5 % (0.0-5.0); LYMPHOCYTES ABSOLUTE AUTO 3.03 10^3/uL (1.00-4.00); LYMPHOCYTES PERCENT AUTO 34.4 % (20.0-40.0); MEAN CORPUSCULAR HEMOGLOBIN 28.6 pg (27.0-31.0); MEAN CORPUSCULAR HGB CONC 33.4 g/dL (32.0-36.0); MEAN CORPUSCULAR VOLUME 85.4 fL (82.0-92.0); MEAN PLATELET VOLUME 9.3 fL (7.4-10.4); MONOCYTES ABSOLUTE AUTO 0.63 10^3/uL (0.10-0.80); MONOCYTES PERCENT AUTO 7.2 % (2.0-8.0); NEUTROPHILS ABSOLUTE AUTO 4.77 10^3/uL (2.50-7.00); NEUTROPHILS PERCENT AUTO 54.2 % (50.0-70.0); PLATELET COUNT,PLT 203 10^3/uL (150-400); RED BLOOD CELL COUNT 3.64 10^6/uL (3.80-5.50); RED CELL DISTRIBUTION WIDTH 13.7 % (11.5-14.5)
[2022-12-09 07:32] LABS: ANION GAP 11.8 mmol/L (5-15); CALCIUM 8.3 mg/dL (8.7-10.3); CARBON DIOXIDE,CO2 27.4 mmol/L (21.0-32.0); CREATININE 0.76 mg/dL (0.51-1.17); EST CRCL DRUG DOSING (CG) 102.15 mL/min; POTASSIUM,K 3.2 mmol/L (3.5-5.1)
[2022-12-09] MEDS ORDERED: Potassium Chloride 20 MEQ Tab.ER PO ONE (07:45)
[2022-12-09] MEDS: Amoxicillin/Clavulanate K 875-125 MG Tab PO SCH (08:04)
[2022-12-09] MEDS: Enoxaparin 40 MG/0.4 ML Syringe SUBCUT SCH (08:04)
[2022-12-09] MEDS: Clindamycin HCl 150 MG Cap PO SCH (08:04)
== END 2022-12-09 12:05 | disposition home or self-care (01) | DRG 720 ==
LOC: KA.MS 11:00 → UNDODISIN 12-09 12:05
PROVIDERS: ADMIT Family Medicine; ATTEND Family Medicine
DX: A41.9 Sepsis, unspecified organism (principal); L03.115 Cellulitis of right lower limb; G43.909 Migraine, unspecified, not intractable, without status migrainosus; M54.50 Low back pain, unspecified; G89.29 Other chronic pain; F41.9 Anxiety disorder, unspecified; R63.0 Anorexia; E66.01 Morbid (severe) obesity due to excess calories; F32.A Depression, unspecified; R53.83 Other fatigue; Z68.36 Body mass index [BMI] 36.0-36.9, adult; Z90.710 Acquired absence of both cervix and uterus; Z79.899 Other long term (current) drug therapy
CPT/HCPCS: 36415; 71046; 80048; 80053; 80202; 81001; 83605; 83735; 85025; 85652; 86140; 99223-GT; 99232-GT; 99233-GT; 99239-GT; A9270-GY; J0295; J0696; J1100; J1650; J1885; J2270; J2405; J2765; J3370; J3490; J7030; Q3014

== ENCOUNTER 2023-12-13 09:02 | Day surgery (SDC) | payer BC, OTHER ==
[~2023-12-13 09:02] MED LIST: Sodium Chloride 0.9% 10 ML Syringe FLUSH PRN
[2023-12-13] MEDS: Lactated Ringers 1,000 ML IV SCH (09:43)
[2023-12-13] MEDS ORDERED: Propofol 200 MG/20 ML SDV ONE (10:19)
[2023-12-13] MEDS ORDERED: Midazolam 1 MG/ML 2 ML SDV ONE (10:19)
== END 2023-12-13 12:10 | disposition home or self-care (01) ==
LOC: KA.SDS 09:02
PROVIDERS: ATTEND Family Medicine
DX: Z12.11 Encounter for screening for malignant neoplasm of colon (principal); K63.5 Polyp of colon; K62.1 Rectal polyp; E66.01 Morbid (severe) obesity due to excess calories; Z68.39 Body mass index [BMI] 39.0-39.9, adult; Z80.0 Family history of malignant neoplasm of digestive organs
CPT/HCPCS: 00811; 45380; 81025; J2250; J2704; J7120; J3490